=== PATIENT | male | born 1950 | race Caucasian/White ===

== ENCOUNTER 2017-01-17 12:43 | Inpatient (IN) | payer OTHER ==
[~2017-01-17] VITALS: Ht 177.8 cm; Wt 136.6 kg
--- NOTE | ~2017-01-17 | CON ---
PATIENT'S NAME: YAMILETH WILLIS [facility] AGE: 66 Y [address] ROOM: [id number] [place], [place] [address] LOCATION: [facility] ADMIT DATE: 01/17/2017 Consultation DISCHARGE DATE: FAMILY PHYSICIAN: PHYSICIAN, UNKNOWN ATTENDING PHYSICIAN: Cas Joseph DATE OF CONSULTATION: 01/17/2017 Consultation was requested by Dr. Joseph on inpatient rehab for medical management. HISTORY OF PRESENT ILLNESS: Mr. Willis is a morbidly obese, male, who is a [place] in [place], who had been relatively well and never hospitalized prior to about September of this year. He had been diagnosed with a skin lesion, found to be melanoma in 2015, it was not known to be metastatic at that time. 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 They were unable to do a lumbar puncture there and sent him to the [facility] in [place]. While in [place], they confirmed the diagnosis of Guillain-Hornsby, thought it was due to the underlying cause of he was found to have metastatic melanoma stage IV, confirmed in November of this year. He was treated with Nivolumab 240 mg IV x2. He had also been being treated with IVIG for his neuropathic symptoms, which was helpful; and when he went off it, became weaker. Eventually, he was sent to [facility] for rehab and was there for quite a while. He reports he was not improving and in fact had recrudescence of some respiratory failure symptoms, seemed to have had an acute pneumonia, for which he was transferred to another acute facility at [facility] in [place] on January 12. He was treated with nasal cannula oxygen, steroids, nebulizers, prednisone, and Levaquin for this. In addition, while there, the IVIG treatments were resumed and he is to be getting weekly doses, the next one being due on 01/23/2017. His last dose of Levaquin will be an oral tablet today. He is going to continue on 30 mg of prednisone for a few days and then resume 20 mg maintenance dose. While the patient states he was healthy and did not really have any medical issues prior to these hospitalizations in [place], he has been being treated with anxioloytics, CPAP because of hypoxia, will be put on auto-adjusting CPAP nocturnally because of nocturnal hypoxia. He is also now diagnosed with hypertension. He was found on imaging to have an old thalamic stroke as well. PATIENT'S NAME: YAMILETH WILLIS [facility] AGE: 66 Y [address] ROOM: [place] [address] LOCATION: [facility] ADMIT DATE: 01/17/2017 Consultation DISCHARGE DATE: FAMILY PHYSICIAN: PHYSICIAN, UNKNOWN ATTENDING PHYSICIAN: Cas Joseph Today, the patient reports he is feeling better. His oxygen requirement had been only at around 2 L, but apparently he was put on 4 during transport. I turned him down to 3 and his oxygen saturation stayed at 94%. So, we will wean his oxygen to keep his saturations greater than or equal to 93%. PAST MEDICAL HISTORY: 1. Hypertension. 2. Obstructive sleep apnea. 3. Morbid obesity. 4. Thalamic stroke by imaging. 5. Malignant melanoma. 6. Guillain-Hornsby. 7. Acute on chronic hypoxic respiratory failure. 8. Anxiety. 9. Pneumonia PAST SURGICAL HISTORY: Excisional biopsy of melanoma in left shoulder in December 2015. FAMILY HISTORY: Both parents from acute coronary syndrome. SOCIAL HISTORY: The patient is a magdaleno in [place], [place]. He was self-employed prior to his acute illness beginning a few months ago. He has never smoked, does not have any significant alcohol use, and was very active. ALLERGIES: NO KNOWN DRUG ALLERGIES. MEDICATIONS: 1. IVIG 55 grams weekly. 2. Prednisone, continue a taper of 30 mg for 3 days, then 20 mg. 3. Sodium chloride nasal spray p.r.n. 4. Amlodipine 5 mg p.o. daily. 5. Lisinopril 10 mg p.o. daily. 6. Labetalol 200 mg 1 every 8 hours. 7. Milk of Mag 30 mL daily p.r.n. for constipation. 8. Ranitidine 150 mg 1 at h.s. for GERD. 9. Alprazolam 0.5 mg 1 t.i.d. p.r.n. for anxiety. 10. Diclofenac patch transdermally twice day p.r.n. for pain. 11. Mucinex 1 daily. 12. Ipratropium nebs q.i.d. and every 2 hours p.r.n. for dyspnea. 13. Brovana 2 mL neb b.i.d. 14. Polyethylene glycol daily. 15. Cyclobenzaprine 5 mg 1 p.o. b.i.d. PATIENT'S NAME: YAMILETH WILLIS [facility] AGE: 66 Y [address] ROOM: [address] [address] LOCATION: [facility] ADMIT DATE: 01/17/2017 Consultation DISCHARGE DATE: FAMILY PHYSICIAN: PHYSICIAN, UNKNOWN ATTENDING PHYSICIAN: Cas Joseph 16. Enoxaparin 40 mg twice daily. REVIEW OF SYSTEMS: He denies headaches. He denies visual changes, hearing loss, pharyngitis, odynophagia, dysphagia, or GERD. He has had no nausea, vomiting, diarrhea, constipation, or melena. He denies urinary symptoms of hesitancy, urinary tract infection, frequency, or incontinence. He denies arthritis, arthritic syndromes, or joint problems. He denies psychiatric problems. The major positives on the review of systems include his new oxygen requirement with some cough and wheezing, for which he has been treated. Remainder of a 12- point review of systems is negative. PHYSICAL EXAMINATION: VITAL SIGNS: Blood pressure 146/66, pulse 74, respirations 18, temperature 97.6, and oxygen saturation is 94% on 3 L nasal cannula O2. GENERAL: The patient is semi-balding, who has multiple skin lesions around his face and neck. HEENT: Pupils are equal and round. Sclerae anicteric. Palpebral conjunctivae are pink without exudate. Oropharynx is clear. Dentition is in fair repair. NECK: Supple without lymphadenopathy. There is redundant adipose. LUNGS: Clear to auscultation bilaterally. CARDIOVASCULAR: Regular rate and rhythm without murmur, rub, or gallop. ABDOMEN: Obese, soft, nontender, and nondistended with normoactive bowel sounds. EXTREMITIES: There is 1 to 2+ pretibial edema and the dorsalis pedis pulses are 2+ and equal bilaterally. He is moving all extremities equally. LABORATORY DATA: Laboratory data is obtained from the [facility] records. His CBC from today shows white blood cell count of 9.4, hemoglobin of 13.1, hematocrit of 39, MCV of 92, and platelets of 217. Differential shows neutrophils 82%, lymphs 10%, and monos 7%. Chemistry from 01/15/2017, showed sodium 136, potassium 4.1, chloride 102, bicarb 32, glucose 102, BUN 21, creatinine 0.6, calcium 8.5, and EGFR is greater than 59. IMAGING STUDIES: Chest x-ray on 01/12/2017, showed left basilar atelectasis without acute infiltrate. There is a CT scan on 01/12/2017. CT of the head is unremarkable, unenhanced CT of the brain, this was mainly done to look for mets as far as I am aware and there was no hemorrhage or mass effect. CT of the chest with and without contrast on 01/12/2017, and you can preface PATIENT'S NAME: YAMILETH WILLIS [facility] AGE: 66 Y [address] ROOM: [place] [address] LOCATION: [facility] ADMIT DATE: 01/17/2017 Consultation DISCHARGE DATE: FAMILY PHYSICIAN: PHYSICIAN, UNKNOWN ATTENDING PHYSICIAN: Cas Joseph these imaging studies also from the [facility]. 1. No CT evidence of pulmonary embolism. 2. Extensive mediastinal and right hilar adenopathy, bilateral pulmonary nodules, partial collapse of the medial aspect of the left lower lobe. ASSESSMENT AND PLAN: 1. Acute on chronic respiratory failure with the acute aspect having been resolved during his hospitalization at [facility]. He is still requiring oxygen at about 3 L and we will attempt to wean as above. This is likely related to his melanoma and he may need Pulmonary consultation here, at least outpatient followup given the nodules and his O2 requirement. 2. Nocturnal hypoxia with presumed obstructive sleep apnea. We will continue CPAP with auto-correct empiric therapy as he has been on since his hospitalizations. Again, he will need outpatient polysomnography and Pulmonology followup. 3. Hypertension. Continue the medical management that has been started at [facility]. 4. Obesity. Should be on the low carb cardiac diet. 5. Anxiety. Continue benzos p.r.n. I would try to wean those and may need to use BuSpar, something not addictive. 6. Malignant melanoma. Consult Oncology. I will leave that to Dr. Joseph. He may just want to wait and see them as an outpatient. 7. History of Guillain-Hornsby with a polyneuropathy. Continue his IVIG treatments. Thank you very much for your assistance. SURY SHEFFIELD MD LM/meena /[id number] d: 01/18/17 0000 t: 01/18/17 1731, CONSULTATION REPORT
--- NOTE | ~2017-01-17 | CON ---
PATIENT'S NAME: YAMILETH SLATER [facility] AGE: 66 Y [address] ROOM: [id number] [place], [place] [address] LOCATION: [facility] ADMIT DATE: 01/17/2017 Consultation DISCHARGE DATE: 02/10/2017 FAMILY PHYSICIAN: Noe Dickson MD ATTENDING PHYSICIAN: Cas Parham DATE OF CONSULTATION: 02/04/2017 REFERRING PHYSICIAN: Hugh Salmeron MD TEAM MEMBERS REPORTING: Include Dr. Parham; Crista Carrion, social security specialist; Debbi Barreto, RN; Sonya Campuzano, PT; Julia Stapleton, PT; Arminda Rivas, OT; Honey Bartholomew, therapeutic recreation; Sister Graciela Auguste, Pastoral Care; and Maryjane from Pharmacy. CURRENT STATUS: Alma Staples is a 66-year-old man, admitted to our inpatient rehabilitation unit with Guillain-[place]. The patient also has a history of stage IV melanoma. The patient is continent of bowel and bladder. He does have some swollen skin. No pain issues. The patient is on a regular diet. Prealbumin is 16, currently at low nutritional risk. He can transfer bsj-ss-cmkfjs and tgtnko-fh-dmq at standby to mod I; xvd-vx-zgusk and wrjtj-gp-daw, mod I; and uks-vb-vzlyc and nhgyd-jk-tdq, standby. He can walk 150 feet with a front- wheeled walker at standby and he can climb 4 stairs with 2 railings at contact guard assistance. He has met 2/9 long-term PT goals and 5/5 short-term PT goals. The patient can dress his upper and lower body at standby; bathing, standby; toilet and shower transfers, standby; and home management tasks, standby. He has met 5/12 long-term OT goals. The patient can complete car transfers at standby. His roll cleaner is improving. The patient has been very upbeat and enjoys pastoral care visits. No pharmacy concerns. DISCHARGE PLAN: The patient is receiving 3 hours of PT and OT Thursday through Thursday. The patient has daily rehabilitation, nursing, and physiatry involvement as well as therapeutic recreational services. The patient has shown functional improvement and is progressing. Please see his plan of care for specific goals. Plan is for patient to discharge on February 10, 2017. The patient plans to go home with outpatient therapy services. CRISTA CARRION FOR CAS PARHAM MD TD/meena PATIENT'S NAME: YAMILETH SLATER [facility] AGE: 66 Y [address] ROOM: [place] [address] LOCATION: [facility] ADMIT DATE: 01/17/2017 Consultation DISCHARGE DATE: 02/10/2017 FAMILY PHYSICIAN: Noe Dickson MD ATTENDING PHYSICIAN: Cas Parham /[id number] d: 02/22/17 1705 t: 03/06/17 1137, CONSULTATION REPORT
--- NOTE | ~2017-01-17 | PUL ---
PATIENT'S NAME: YAMILETH SLATER [facility] AGE: 66 Y [address] ROOM: [place] [address] [facility] AD[facility] DATE: 01/17/2017 Pulmonary DISCHARGE DATE: 02/10/2017 FAMILY PHYSICIAN: Noe Dickson MD ATTENDING PHYSICIAN: Cas Joseph NAME OF PROCEDURE: Overnight Pulse Oximetry DATE OF PROCEDURE: February 09 to February 10, 2017 REASON FOR PROCEDURE: Nocturnal hypoxemia RESULTS: The test was performed on room air. The recording time and total recording time were 7 hours, 10 minutes, and 32 seconds. The highest pulse 88, lowest pulse was 47, with mean pulse of 60. The highest SpO2 was 95%, lowest SpO2 was 72%, with mean SpO2 88.2%. The patient spent 2 hours, 57 minutes, and 40 seconds with SpO2 less than 89%, representing 41.3% of the total sleep time. The desaturation event index was elevated at 39.7. PHYSICIAN INTERPRETATION: The patient has evidence of significant nocturnal hypoxia and would qualify for supplemental oxygen as per Medicare criteria. However because of the severity of his nocturnal hypoxia with an elevated desaturation event index a sleep study is suggested at this time. ALLEGRA STEWART MD RFKenneth/ks /[id number] dtt: 02/12/17 0854 , ALLEGRA STEWART dtd: 02/11/17 1342
--- NOTE | ~2017-01-17 | DS ---
PATIENT'S NAME: YAMILETH SLATER [facility] AGE: 66 Y [address] ROOM: [place] [address] LOCATION: [facility] ADMIT DATE: 01/17/2017 Discharge Summary DISCHARGE DATE: FAMILY PHYSICIAN: Noe Dickson MD ATTENDING PHYSICIAN: Cas Parham [facility] COURSE: This 66 years old gentleman was admitted to rehab unit at [facility], [place], [place], on 01/17/2017 for continuous medical treatment and intensive rehabilitation with marked generalized weakness secondary to Guillain-[place] syndrome. He also had COPD, also had multiple myeloma with metastasis diagnosed in November 2016, and was put on intensive therapy. At the present time, he is doing well, alert, oriented, feels well and comfortable. Vitals are blood pressure 141/84, temperature 97.7, pulse 67, and respiration rate 20. His CBC today on 02/09 was as follows: White BC 9.0, RBC 4.56, hemoglobin 13.6, and platelets 2.9. His CMS: Sodium 141, potassium 3.6, chloride 107, CO2 of 26, BUN 11, creatinine 0.7, and glucose 86. Prealbumin 18.0. Able to ambulate with gait training and up to 120 feet x2 with single-point cane and sometimes close by. To start with, he will go to outpatient PT and OT 3 times per week for the coming 4 weeks. He should not drive and/or operate any mechanical device until he is re- evaluated. He will follow with his family physician as soon as possible, and all his medications of discharge will be given for 30 days, and any change and/or addition or deletion of any medication is as per his family physician. He will follow with Dr. Fernandez on 02/19/2017. Follow up with Dr. Noe Dickson in 6 weeks. PATIENT'S NAME: YAMILETH SLATER [facility] AGE: 66 Y [address] ROOM: [place] [address] LOCATION: [facility] ADMIT DATE: 01/17/2017 Discharge Summary DISCHARGE DATE: FAMILY PHYSICIAN: Noe Dickson MD ATTENDING PHYSICIAN: Cas Parham Follow with Dr. Bhandari, please call [phone]. Again, no driving or operating any mechanical device until he is re-evaluated. He will have a central line for his treatment. He is on the following medications: 1. Immunoglobulin IgG 10% octagram, 10%, 10 g per 100 mL vial until 04/17. 2. Tylenol 650 Thursday 30 minutes before IVIG. 3. Tylenol 650 Thursday if IGIV infusion not complete, repeat dose if IVIG not complete. These are both for 30 days. 4. Norvasc 5 mg p.o. daily. 5. Flexeril 5 mg twice daily. 6. Pepcid 20 mg p.o. at bedtime. 7. Humibid LA 650 daily. 8. Trandate 200 mg p.o. q.8 hours. 9. Lisinopril 10 mg p.o. daily. 10. Deltasone 20 mg p.o. daily with food. 11. Pulmicort 0.5 mg inhalation twice daily. 12. Albuterol one each inhalation twice daily. 13. MiraLAX 17 g p.o. as needed p.r.n. FINAL DIAGNOSES: 1. Unstable gait. 2. Dependent in activities of daily self-care. 3. Marked generalized weakness secondary to Guillain-[place] syndrome diagnosed recently. 4. History of multiple myeloma, stage IV, followed by Dr. Fernandez, oncologist. 5. Chronic obstructive pulmonary disease per history. 6. Hypertension. 7. Anxiety, now stable. 8. Dyslipidemia. 9. Reflux gastric disease. We will do overnight sleep study for CPAP possibility. All the above was explained to him in detail. He verbalized understanding and agreement with plan of care. CAS PARHAM MD WMS/airaml PATIENT'S NAME: YAMILETH SLATER [facility] AGE: 66 Y [address] ROOM: [address] [address] LOCATION: [facility] ADMIT DATE: 01/17/2017 Discharge Summary DISCHARGE DATE: FAMILY PHYSICIAN: Noe Dickson MD ATTENDING PHYSICIAN: Cas Parham /[id number] d: 02/09/17 1153 t: 02/10/17 0723, DISCHARGE SUMMARY
--- NOTE | ~2017-01-17 | CON ---
PATIENT'S NAME: JHOAN SALTER [facility] AGE: 66 Y [address] ROOM: G34[address] [place], [place] [address] LOCATION: [facility] ADMIT DATE: 01/17/2017 Consultation DISCHARGE DATE: FAMILY PHYSICIAN: Noe Dickson MD ATTENDING PHYSICIAN: Cas Parham DATE OF CONSULTATION: 01/21/2017 REFERRING PHYSICIAN: Hugh Salmeron MD TEAM MEMBERS REPORTING: Include Dr. Parham; Crista Carrion, social and political studies professor; Debbi Barreto, RN; Julia Stapleton, PT; Sonya Campuzano, PT; Arminda Rivas, OT; Cielo Segovia, Speech Therapy; Honey Bartholomew, therapeutic rec; and Sister Gracieal Auguste, pastoral care. CURRENT STATUS: Jhoan is a 66-year-old man, admitted to our inpatient rehab unit on January 17, 2017, from [facility] in [place]. The patient has a diagnosis of Guillain- [place] syndrome. He also has a history of multiple myeloma stage IV. The patient is on a rehab unit following the Guillain-[place]. He is getting IVIG 1 time a week for maintenance dose. He has a history of hypertension, obstructive sleep apnea, morbid obesity, thalamic stroke by imaging, malignant melanoma, Guillain-[place] syndrome, acute on chronic hypoxic respiratory failure, anxiety, and pneumonia. The patient is continent of bowel and bladder. No pain issues. He is on a regular diet. He can transfer sit-to- supine and hpojhn-vj-rfh at minimal assistance; nlr-ze-xozgn and zdlas-uq-rsp at minimal assistance. He can do scoot transfer at contact guard assistance to minimal assistance. The patient can ambulate 30 feet with minimal assistance with job sheet at the pelvis using a front-wheeled walker. He can propel his wheelchair 150 feet at contact guard assistance. He did fatigue rapidly. His goals will be set at standby assistance to modified independence for PT. The patient can dress his upper body at standby; lower body minimal assistance; grooming standby; bathing minimal assistance; toilet transfers, contact guard assistance using a scoot technique. He is dependent for toileting, and contact guard assistance for shower transfers. The patient does live alone. His goals for OT have been set for standby. The patient has been very open to pastoral care. DISCHARGE PLAN: The patient is receiving 3 hours of PT and OT Thursday through Thursday. The patient has daily rehab, nursing, and physiatry involvement as well as therapeutic recreational services 4 days per week. The patient has shown functional improvement and is progressing. Please see his plan of care for specific goals. Plan is for the patient to discharge in approximately 3 to 4 weeks. The patient's goal is to be able to return to home in [place]. PATIENT'S NAME: JHOAN SLATER [facility] AGE: 66 Y [address] ROOM: [place] [address] LOCATION: [facility] ADMIT DATE: 01/17/2017 Consultation DISCHARGE DATE: FAMILY PHYSICIAN: Noe Dickson MD ATTENDING PHYSICIAN: Cas Parham CRISTAMARY CARRION FOR CAS PARHAM MD TD/modl /[id number] d: 02/02/17 1225 t: 02/16/17 1415, CONSULTATION REPORT
--- NOTE | ~2017-01-17 | CON ---
PATIENT'S NAME: JHOAN WILLIS [facility] AGE: 66 Y [address] ROOM: [address] [address] LOCATION: [facility] ADMIT DATE: 01/17/2017 Consultation DISCHARGE DATE: FAMILY PHYSICIAN: Noe Dickson MD ATTENDING PHYSICIAN: Cas Joseph DATE OF CONSULTATION: 01/19/2017 REFERRING PHYSICIAN: Hugh Salmeron MD REQUESTING PHYSICIAN: Jessica Mcdonald MD. HISTORY OF PRESENT ILLNESS: Jhoan Willis is a 66-year-old man seen for assistance in the continued management of widely disseminated nodular malignant melanoma. The history of the present illness is obtained from Mr. Willis, whose history is not entirely informative due to frequent lapses of memory; Dr. Mcdonald; and review of the extensive, well organized, helpful records from the [facility]. Mr. Willis is currently on day 22 of his second cycle of nivolumab. He is currently wheelchair-bound. Today, he walked up to 22 feet with a walker and one person assisting. The patient has paresthesias in the soles of his feet and to the metacarpal joints, which he describes as pins and needles. He is not sure if the paresthesias have led to any change in function, but they are not particularly painful. His appetite is currently good, although he acknowledges he lost 58 pounds over one 4-5-month period during his illness. He produces clear sputum twice a day when he coughs, and has developed some pedal edema while he has been wheelchair-bound, which has been reasonably well controlled with furosemide. The patient is currently on the Inpatient Rehabilitation floor. Mr. Willis has a history of cutaneous melanoma. This was first symptomatic in September 2015 when he noticed a red nodule on his left shoulder, which grew over the next two months. On 12/14/2015, the patient saw his physician, Dr. Arjun Asher, who referred the patient to Dr. Dora Munoz. On 12/25/2015, Dr. Munoz performed an excisional skin biopsy. The biopsy revealed a nodular malignant melanoma. The melanoma was invasive to a depth of 12 mm and to Kwan's level IV. Ulceration was present. The dermal mitotic index was 17/mm2. There was no lymphovascular or perineural invasion identified. The pathologist made the point the specimen had irregular architecture, which made it difficult to quantify a precise Breslow's depth measurement. The Breslow's depth level was no less than 12 mm, but might have been greater. The lateral and deep margins were involved on the initial specimen. PATIENT'S NAME: JHOAN WILLIS [facility] AGE: 66 Y [address] ROOM: [address] [address] LOCATION: [facility] ADMIT DATE: 01/17/2017 Consultation DISCHARGE DATE: FAMILY PHYSICIAN: Noe Dickson MD ATTENDING PHYSICIAN: Cas Joseph On 01/15/2016, Dr. Munoz performed a wide re-excision of the area over the left shoulder (4 x 8.5 x 3 cm), and performed a left sentinel lymph node study. There was no residual melanoma in the shoulder specimen, and the sentinel node examined revealed reactive sinus histiocytosis. No local or systemic adjuvant therapy was administered or apparently contemplated. On 09/29/2016, the patient saw Sarika Walker APRN, at the [facility] for evaluation of longstanding right hip pain. Plain films of the right hip were unremarkable. A methylprednisolone dose pack was initiated. An MRI scan of the lumbar spine and x-ray of the lower spine were recommended. Nurse Walker detected a nodule on the skull compatible with a "cyst." Because of his history of cutaneous melanoma, Nurse Walker referred the patient to Dr. Munoz. Before the outpatient consultation could occur, the patient developed a hypertensive crisis on 10/13/2016, and reported to the [facility] for evaluation of diplopia, left arm numbness, and left upper and lower extremity weakness, which the patient acknowledged may have been gradually progressive as well as severe back pain, which had become gradually progressive and associated with ataxia. In the Emergency Room, his blood pressure was 240/125. Labetalol was administered with improvement in the blood pressure. Imaging studies were obtained. The CAT scan of the brain revealed a lacunar infarct in the left thalamus, which appeared old. There were nodules involving the right parotid gland as well as the subcutaneous tissue at the vertex. A CAT scan of the neck revealed a large mediastinal mass just to the right of the trachea. There was a 2-cm mass in the right parotid gland. There was a 1.8 subcutaneous nodule on the right posterior neck and [id number] osteoarthritis throughout the cervical spine. The CAT scan of the chest, abdomen, and pelvis revealed mild cardiac enlargement and mild pulmonary vascular engorgement with large mediastinal lymph nodes and bilateral axillary nodes, small peripelvic cysts in the right kidney, diffuse fatty infiltration of the liver with a small amount of gallbladder sludge, and a 3-cm lesion within the spleen; a left inguinal mass and a subcutaneous nodule posterior to the left thoracic spine, with moderate osteoarthritis in the thoracic and lumbar spine. MRI of the lumbar spine revealed small parapelvic cysts in the left kidney, and congenital spinal and neural foraminal stenosis. Dr. Munoz scheduled a lymph node biopsy as an outpatient to be performed after the patient stabilized. The patient was discharged on 10/15/2016 with his blood pressure under better control. The patient shortly returned to [facility] for evaluation of persistent back pain, progressive paraparesis and paresthesias in all four extremities, and was swiftly transferred to the [facility] on 10/21/2016. At the [facility], he underwent EMGs on 10/22/2016, which revealed electrophysiologic evidence of a subacute, PATIENT'S NAME: JHOAN WILLIS [facility] AGE: 66 Y [address] 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 Nocturnal trend oximetry was compatible with cyclical desaturation, compatible with sleep apnea. On 10/22/2016, a lumbar puncture revealed the protein was 181 mg/dL with 1 WBC. On 10/28/2016, a right axillary node biopsy was performed, and revealed metastatic melanoma with the BRAF K601E mutation. On 11/13/2016, a PET/CT scan was performed, which revealed a 1.7-cm scalp lesion in the midline frontal area and a right parietal scalp lesion. There was a right shoulder extensor muscle lesion and bilateral axillary node masses. There was a large mediastinal right peritracheal hypermetabolic ale mass, as well as subcarinal, mediastinal, and right hilar lymph nodes with the right paratracheal node measuring 4.6 cm. There was a markedly hypermetabolic lesion in the middle of the spleen, as well as a single hepatic hypermetabolic lesion in the liver adjacent to the gallbladder. Anterior mesenteric ale masses, right paracaval ale masses, and left inguinal masses were noted as well. The splenic mass was 3.4 cm. There were hypermetabolic lesions in the left mid lumbar level, posterior paraspinous muscle, the right greater trochanteric bone, and a right calcaneal lesion, which appeared to have an associated pathologic fracture. There was a hypermetabolic medial condyle left distal femur lesion noted as well. The patient was seen in Medical Oncology consultation by Dr. Wesley Harding. Dr. Harding recommended concurrent dabrafenib and trametinib, but the Insurance Company would not reimburse the patient for this combination because it was not FDA approved for the particular unusual BRAF mutation that he had. Dr. 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 However, it was clear the patient needed systemic therapy, and nivolumab was recommended. On 12/08/2016, the first cycle was administered, and on 12/25/2016. The third cycle was not administered as far as he knows. We have no information available on the medical record that he has received nivolumab since 12/25/2016. The patient has been improving. His appetite has improved and his strength has improved. The patient acknowledges he was sunburned a lot as a child. He has [place] ancestors. He has been a magdaleno and has not been careful about sunscreen. He had no prior history of skin cancer. He has no family history of melanoma. ACTIVE MEDICAL PROBLEMS, CHRONIC AND DIAGNOSED: 1. Class III obesity. The BMI is 42 kg/m2 upon admission. 2. Essential arterial hypertension noted in 2012, which can be labile. It PATIENT'S NAME: JHOAN WILLIS [facility] AGE: 66 Y [address] ROOM: [place] [address] LOCATION: [facility] ADMIT DATE: 01/17/2017 Consultation DISCHARGE DATE: FAMILY PHYSICIAN: Noe Dickson MD ATTENDING PHYSICIAN: Cas Joseph has been associated with lacunar infarcts and diastolic dysfunction. 3. Obstructive sleep apnea, treated effectively with CPAP. 4. Parapelvic left kidney cyst noted on CAT scan. 5. Atherosclerotic cerebrovascular disease. There was small vessel ischemic disease as well as right and left proximal internal carotid artery stenosis (less than 50%) noted on the imaging studies. Furthermore, the patient has had bilateral basal ganglia and left thalamic lacunar infarcts. 6. 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 7. Right adrenal myelolipoma noted on CAT scan. 8. Non-alcoholic fatty liver disease noted on CAT scan. 9. Multiple thyroid nodules. 10. Grade 1 diastolic dysfunction. ACUTE MEDICAL ILLNESSES (RESOLVED), PAST SURGERIES, AND INJURIES: Other than the surgical procedures and hospitalizations related to his melanoma, the patient has no past hospital admissions or outpatient surgical procedures. MEDICATIONS UPON ADMISSION: Lisinopril 10 mg p.o. q.24 h. ADVERSE REACTIONS TO MEDICATIONS, TRANSFUSIONS, AND ALLERGIES: 1. No known allergies. 2. No history of transfusions. HABITS: Tobacco, none. Alcohol, none. Caffeine 1. 1-2 cups of coffee per day. 2. Two iced tea daily. IMMUNIZATIONS: Negative flu, negative Pneumovax, negative tetanus, and negative varicella zoster virus. FAMILY HISTORY: A sister developed colon cancer at age 40. A brother developed prostate cancer at age 60 and was cured. The patient's brother is now 70. SOCIAL HISTORY: The patient was born and raised a [facility]. Following graduation, he attended [employer]. The patient is a lifelong bachelor who attends the [employer]. He has a brother in [place] and a sister in PATIENT'S NAME: JHAON WILLIS [facility] AGE: 66 Y [address] ROOM: [address] [address] LOCATION: [facility] ADMIT DATE: 01/17/2017 Consultation DISCHARGE DATE: FAMILY PHYSICIAN: Noe Dickson MD ATTENDING PHYSICIAN: Cas Joseph [place], [place]. REVIEW OF SYSTEMS: Negative other than those noted in the history of the present illness. PHYSICAL EXAMINATION: VITAL SIGNS: Pulse was 80 and regular, blood pressure was 145/70, respiratory rate was 20, temperature was 98 degrees, and SpO2 was 93% on 2 L. Height is 70 inches. Weight is 133 kg (293 pounds). BMI is 42 kg/m2. GENERAL: Well developed, obese, 66-year-old man, wheelchair bound. HEENT: Mild rosacea. There is a 3-cm diameter cavity on the skull, where the patient reports a melanoma has regressed. LYMPHATICS SYSTEM: Lymph nodes were nonpalpable. NECK: Without JVD or carotid bruits. SKIN: Multiple seborrheic keratoses and warts. CHEST: Clear. CARDIOVASCULAR: Decreased S1 and S2. No murmurs, bruits, or adventitious sounds. BREASTS: Bilateral lipomastia. ABDOMEN: No masses, tenderness, or organomegaly. GENITALIA AND RECTAL: Not examined. EXTREMITIES: Well-healed scar over the left shoulder. Pulses are 2+ throughout. Trace lower extremity peripheral edema. NEUROLOGIC: Strength is 5/5 in the upper extremities and 4/5 in the lower extremities. Deep tendon reflexes and Babinski are not tested. IMPRESSION: 1. 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, cutaneous nodular melanoma arising from a stage IIC (tT4b,N0,M0) nodular melanoma of the left shoulder (Breslow depth at least 12 mm, Kwan's level IV) with a dermal mitotic index of 17/mm2 with ulceration, now metastatic to the bone (right calcaneus with a pathologic fracture, medial condyle of the left femur, and right greater trochanter); liver (solitary mass adjacent to the gallbladder); lymph nodes (bilateral axillary, right hilar nodes, left inguinal, anterior mesenteric, right paracaval, right paratracheal, and subcarinal); spleen; subcutaneous areas of the posterior iliac spine, right neck, scalp, and the right parotid gland responding to nivolumab. 2. 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 3. There is no reason to change the current approach as the patient is tolerating nivolumab well and deriving excellent benefit from it. We need to proceed. PLAN: DIAGNOSTIC PATIENT'S NAME: JHOAN WILLIS [facility] AGE: 66 Y [address] ROOM: [place] [address] LOCATION: [facility] ADMIT DATE: 01/17/2017 Consultation DISCHARGE DATE: FAMILY PHYSICIAN: Noe Dickson MD ATTENDING PHYSICIAN: Cas Joseph 1. LDH. 2. TSH. TREATMENT 1. Nivolumab 240 mg IV every two weeks. We will initiate this as soon as possible. 2. Continue the immune globulin managed by the hospitalist. PATIENT EDUCATION Recommended we continue his current approach. MD HUE GEORGEB/modl /[id number] CC: MD Noe Evans MD Melissa R Stade, MD William M Suleiman, MD Lucinda Mundorf, MD [address] [place] [id number] Purvi Edmond MD [address] [address] d: 01/23/17 0026 t: 01/23/17 1401, CONSULTATION REPORT
--- NOTE | ~2017-01-17 | CON ---
PATIENT'S NAME: JHOAN SLATER [facility] AGE: 66 Y [address] ROOM: [id number] [place], [place] [address] LOCATION: [facility] ADMIT DATE: 01/17/2017 Consultation DISCHARGE DATE: FAMILY PHYSICIAN: Noe Dickson MD ATTENDING PHYSICIAN: Cas Parham DATE OF CONSULTATION: 01/28/2017 REFERRING PHYSICIAN: Hugh Salmeron MD TEAM MEMBERS REPORTING: Include Dr. Parham; Crista Carrion, social worker health services; Jamee Murdock, RN; Julia Stapleton, PT; Sonya Campuzano, PT; Arminda Rivas, OT; Cielo Segovia, Speech Therapy; Honey Bartholomew, therapeutic rec; and Sister Graciela Auguste, pastoral Care. CURRENT STATUS: Jhoan is a 66-year-old man, admitted to our inpatient rehab unit on January 17, 2017, with Guillain-[place] syndrome. He also has a history of melanoma, stage IV. He is continent of bowel and bladder. No skin or pain issues. The patient is on a regular diet. He is at low nutritional risk. He can transfer sit to supine and supine to sit at standby; sit to stand, contact guard assistance with cues, and bed to chair, contact guard assistance. He can ambulate 150 feet with a front-wheeled walker at contact guard assistance and he can climb 4 stairs at contact guard assistance. These are 6 inch steps. The patient is not using his AFO anymore. He has met 3/7 short-term PT goals. The patient can dress his upper body at standby; lower body minimal assistance; grooming, standby; bathing, moderate assistance; toilet and shower transfers, contact guard assistance; and feeding, independent. Home management tasks are currently at contact guard assistance. We plan to do a home safety evaluation next week for patient. He has met 2/12 long-term OT goals and 2/3 short-term OT goals. The patient has been very open to pastoral care. DISCHARGE PLAN: The patient is receiving 3 hours of PT, OT, Thursday through Thursday. The patient has daily rehab, nursing, and physiatry involvement as well as therapeutic recreational services 4 days per week. The patient has shown functional improvement and is progressing. Please see his plan of care for specific goals. Plan is for patient to discharge in approximately 10-14 days. The patient plans to return to home in [place], [place]. CRISTA CARRION FOR CAS PARHAM MD PATIENT'S NAME: JHOAN SLATER [facility] AGE: 66 Y [address] ROOM: [address] [address] LOCATION: [facility] ADMIT DATE: 01/17/2017 Consultation DISCHARGE DATE: FAMILY PHYSICIAN: Noe Dickson MD ATTENDING PHYSICIAN: Cas Parham TD/airaml /[id number] d: 02/02/17 1158 t: 02/16/17 1412, CONSULTATION REPORT
--- NOTE | ~2017-01-17 | HP ---
PATIENT'S NAME: YAMILETH SLATER [facility] AGE: 66 Y [address] ROOM: [address] [address] LOCATION: [facility] ADMIT DATE: 01/17/2017 History & Physical DISCHARGE DATE: FAMILY PHYSICIAN: Noe Dickson MD ATTENDING PHYSICIAN: Gene Parham DATE OF SERVICE: HISTORY OF PRESENT ILLNESS: This gentleman who is 66-year-old is admitted for continuous medical treatment and intensive rehabilitation. Referred from [facility] and admitted to [facility] on 01/17/2017. 1. Unstable gait. 2. Dependent activities of daily and self-care with marked weakness, bilateral lower extremities especially. 3. He is diagnosed status post Guillain-[place] syndrome leading to unstable gait and dependent activities of daily and self-care with marked weakness, bilateral lower extremities especially, at high risk of falling. 4. He has past history significant of multiple myeloma, stage IV. 5. He was on admission alert and oriented x3. VITAL SIGNS: Blood pressure 142/70, 97.7, pulse 80, respiratory rate 22, and he is 5 feet 10 inches tall and weighs 133 kg. ALLERGIES: NO REPORTED DRUG ALLERGIES. HE CAN MOVE BILATERAL UPPER AND LOWER EXTREMITIES, MARKEDLY WEAK IN BILATERAL LOWER EXTREMITY. MEDICATIONS: Current medications are as follows: 1. Tylenol 650 q.6 hours, do not exceed acetaminophen 4 g q.24 hours. 2. Deltasone 20 mg p.o. in a.m. 3. Humibid LA 600 mg 1 sustained release tablet per dose daily. 4. Norvasc 5 mg p.o. daily, hold if systolic blood pressure is below 110. 5. MiraLAX 17 g p.o. as needed daily. 6. Lisinopril 10 mg p.o. daily. 7. Labetalol hydrochloride 200 mg 2 tablets p.o. q.8 hours. 8. Lovenox 40 mg subcutaneous daily. 9. Flexeril 10 mg, give 5 mg p.o. b.i.d. 10. Pepcid 20 mg p.o. at h.s. 11. Pulmicort 0.5 mg b.i.d. inhalation. 12. Albuterol sulfate 2.5 mg (3 mL per dose) inhalation q.6 hours. 13. Albuterol sulfate (iprat-albut 0.5-3 mg, 3 mL each dose) inhalation PATIENT'S NAME: YAMILETH SLATER [facility] AGE: 66 Y [address] ROOM: [address] [address] LOCATION: [facility] ADMIT DATE: 01/17/2017 History & Physical DISCHARGE DATE: FAMILY PHYSICIAN: Noe Dickson MD ATTENDING PHYSICIAN: Gene Parham q.i.d. as needed. 14. Sodium chloride. 15. Pine nasal spray in each nostril q.2 hours as needed. 16. Xanax 0.5 mg 1 p.o. t.i.d. 17. Dulcolax suppository 10 mg rectally p.r.n. 18. MOM 30 mL p.r.n. at h.s. 19. Immune globulin, Octagam 10% 5 gram vial as directed 50 mL Thursday IV on 01/23/2017, 12 bags. 20. Prednisone 30 mg p.o. daily 3 doses. ASSESSMENT AND PLAN: 1. At the present time, the patient can move bilateral upper extremities fairly well. He is able to communicate, able to understand, comprehend, and express without difficulty. 2. We will put on intensive PT, OT and we will ask hospitalist to follow and Dr. Salmeron to follow on his melanoma. 3. His urinalysis was basically, grossly negative. 4. His CBC was as follows; white BC 8.8, RBC 4.52, hemoglobin 13.1, hematocrit 41.5, and platelets 200,000. 5. CMS; sodium 140, potassium 3.9, chloride 106, CO2 30, BUN 16, creatinine 0.8, and glucose 107. 6. Prealbumin was 22.0. 7. He could stand on parallel bars x4 with support of moderate assistance, especially support to his knees. He could make at best 8 feet x1 on parallel bar with moderate assistance of one. We will put on intensive PT/OT 3 hours per day, 15 hours per week for about maybe 2 to 3 weeks, aiming to discharge on modified independence. All the above was explained to him in detail. He verbalized understanding and agreement with plan of care. GENE PARHAM MD WMS/modl /[id number] D: [id number] T: [id number] HISTORY & PHYSICAL
--- NOTE | ~2017-01-17 | CON ---
PATIENT'S NAME: JHOAN WILLIS [facility] AGE: 66 Y [address] ROOM: [place] [address] LOCATION: [facility] ADMIT DATE: 01/17/2017 Consultation DISCHARGE DATE: 02/10/2017 FAMILY PHYSICIAN: Noe Dickson MD ATTENDING PHYSICIAN: Cas Joseph DATE OF CONSULTATION: 01/19/2017 REFERRING PHYSICIAN: Hugh Salmeron MD REASON FOR CONSULTATION: Obstructive sleep apnea and mediastinal lymphadenopathy. HISTORY OF PRESENTING ILLNESS: Mr. Jhoan Willis is a 66-year-old gentleman with a history of widely disseminated nodular malignant melanoma. Mr. Willis is currently on day 22 of his second cycle of nivolumab. He is currently wheelchair bound. He walked up to 22 feet with a walker. He has a history of cutaneous melanoma that was first symptomatic in September of 2015 when he noticed a red nodule on his shoulder. The patient also has a history of obstructive sleep apnea, currently does not have his CPAP with him, he does complain of excessive daytime sleepiness, he complains of snoring, and non-refreshing sleep, the patient is currently wheelchair bound and also the patient has morbid obesity. Currently, the patient denied any shortness of breath, nausea, vomiting, abdominal pain. He currently denied any fever, as for the malignant melanoma, the patient has been on treatment, the patient does have mediastinal lymphadenopathy on the CT scan given the fact the patient has what melanoma and there is a set of CT scan of chest, abdomen, and pelvis that revealed mild cardiac enlargement and mild pulmonary vascular engorgement with large mediastinal lymph nodes and bilateral axillary nodes and small pelvic cyst in the right kidney, diffuse fatty infiltration of the liver with a small amount of gallbladder sludge. PAST MEDICAL HISTORY: Include: 1. Class 3 obesity. BMI is 42. 2. Essential hypertension. 3. Obstructive sleep apnea. 4. Pelvic left kidney cyst. 5. Atherosclerotic cerebrovascular disease. 6. Osteoarthritis arthritis. 7. Right adrenal myelolipoma. PATIENT'S NAME: JHOAN WILLIS [facility] AGE: 66 Y [address] ROOM: [place] [address] LOCATION: [facility] ADMIT DATE: 01/17/2017 Consultation DISCHARGE DATE: 02/10/2017 FAMILY PHYSICIAN: Noe Dickson MD ATTENDING PHYSICIAN: Cas Joseph 8. Nonalcoholic fatty liver disease. 9. Multiple thyroid nodules. 10. Grade 1 diastolic dysfunction. PAST SURGICAL HISTORY: Other than the surgical that has been done for melanoma, the patient denied any further surgeries. MEDICATIONS: Upon admission lisinopril 10 mg p.o. daily. ADVERSE REACTION TO MEDICATIONS/TRANSFUSIONS/ALLERGIES: 1. No known allergies. 2. No history of transfusions. HABITS: There is no history of alcohol, tobacco, or illicit drug abuse. FAMILY HISTORY: Sister developed colon cancer at the age of 40. A brother developed prostate cancer at the age of 60 and was cured. The patient's brother is now 70. SOCIAL HISTORY: The patient was born and raised in [place], [place]. Currently resides in [place], [place]. REVIEW OF SYSTEMS: A 10-point review of system was done and otherwise negative other than mentioned in the history of presenting illness. PHYSICAL EXAMINATION: VITAL SIGNS: Include a pulse was 80 and regular, blood pressure was 150/75, respiratory rate was 18, temperature was 98 degrees F, SpO2 was 93% on 2 L. His height was 70 inches and weight was 133 kg which is 293 pounds and BMI is 42. GENERAL: Well-developed, obese, wheelchair bound. HEENT: Mild rosacea. There is a 3 cm in diameter cavity on the skull where the patient reports a melanoma has progressed. LYMPHATIC: Lymph nodes are none palpable. NECK: No JVD. No lymphadenopathy noted. SKIN: Multiple seborrheic keratoses and warts. CHEST: Clear. CARDIOVASCULAR: Decreased S1 and S2. No murmurs or bruits noted. ABDOMEN: Soft, nontender. No palpable organs. Positive bowel sounds. EXTREMITIES: Well healed scar over the left shoulder. Pulses are +2. PATIENT'S NAME: JHOAN WILLIS [facility] AGE: 66 Y [address] ROOM: [id number] [place], [place] [address] LOCATION: [facility] ADMIT DATE: 01/17/2017 Consultation DISCHARGE DATE: 02/10/2017 FAMILY PHYSICIAN: Noe Dickson MD ATTENDING PHYSICIAN: Cas Joseph NEUROLOGIC: Strength is 5/5 in the upper extremities, 4/5 in the lower extremities. Deep tendon reflexes and Babinski are not tested. LABORATORY DATA: Reviewed from 01/17 which revealed white cell count of 8.8, hemoglobin is 13.1, and platelets of 200. Urinalysis was negative. His CMP was reviewed, which reveal a sodium was 140, potassium 3.9, CO2 of 30, anion gap 7.9, glucose of 107, calcium of 8.1, BUN of 16, creatinine 0.8, total protein of 8.3, albumin is 2.5, globulin 5.8, AST 15, ALT of 19, estimated GFR is more than 60. IMPRESSION: 1. Mediastinal lymphadenopathy. At the current point, in the setting of disseminated melanoma, this is most likely malignant. The patient is currently undergoing chemotherapy. I do not believe there is a need for further intervention. At this point, the patient has been stable on chemotherapy and has been responding. I would leave this issue to team Onc. At a certain point, Oncology will require more tissue. We will be happy to assist. 2. Obstructive sleep apnea. Currently, the patient has obstructive sleep apnea. He has all the symptoms for obstructive sleep apnea. Currently, is not treated. At the current point, we will put the patient on CPAP auto titrate 5 to 20. a. Until a formal sleep study is done and further evaluation of his disease is done. b. I have counseled the patient about the risk of sleep apnea unless he is using his CPAP. Thank you for allowing me to participate in the care of this patient. MD PETR WHITE/meena /[id number] d: 03/17/17 2354 t: 03/[id number], CONSULTATION REPORT
--- NOTE | 2017-01-17 19:34 | NUR ---
Significant Event:PATIENT ADMITTED TO ROOM 3292 FROM [facility] VIA AMBULANCE. ARRIVED AT 1705. SETTLED TO BED. REPORT GIVEN TO ONCOMING SHIFT AND ADMISSION PROCESS STARTED. O2 ON AT 4L/NC. DENIES PAIN. NO OTHER COMPLAINTS. Follow up:
[2017-01-17 19:43] LABS: BILIRUBIN URINE NEGATIVE (NEGATIVE); BLOOD URINE NEGATIVE /UL (NEGATIVE); COLOR URINE YELLOW (YELLOW); GLUCOSE URINE NEGATIVE (NEGATIVE); KETONE URINE NEGATIVE (NEGATIVE); LEUKOCYTES URINE NEGATIVE /UL (NEGATIVE); NITRITE URINE NEGATIVE (NEGATIVE); PH URINE 6.5 (4.0-8.0); PROTEIN URINE NEGATIVE (NEGATIVE); TURBIDITY URINE CLEAR (CLEAR); UROBILINOGEN URINE NORMAL (NORMAL)
--- NOTE | 2017-01-18 00:25 | NUR ---
D: Nursing Admission Note I: Nursing interventions provided to support the patient's individual plan of care R: MOBILITY-- Up 2 assist sit stand lift. Lower extremities very little movement, weakness. Tingling. NUTRITION--Regular, Regular consistancy diet SKIN/INCISIONS/WOUNDS-- Escoriated right groin. Rectal area red. bruising to bilateral AC SELF CARES-- Independent after set up. Needs assist with omero cares and dressing lower extremities. BOWEL/BLADDER-- Continent of B&B. Up with sit stand lift to the bathroom. Will use urinal. RESPIRATORY-- O2 at 3 liters. CPAP at HS. PAIN-- Denies pain. PSYCHOSOCIAL-- Normal COGNITION-- A&O SPECIAL NEEDS-- NA BLEEDING-- None SENSORY IMPAIRMENTS/DENTAL NEEDS: Glasses TEACHING NEEDS-- None INFECTION CONCERNS: None RISK FOR ELOPEMENT: None NEED FOR BED/MOVEMENT ALARM: yes DISMISSAL PLANS: HOME Other: P: Current plan of care reviewed and updated
[2017-01-18 04:58] LABS: BASOPHIL % 0.2 %; EOSINOPHIL # 0.1 K/uL (0.0-0.5); EOSINOPHIL % 1.4 %; HEMATOCRIT 41.5 % (37.0-53.0); HEMOGLOBIN 13.1 g/dL (11.0-16.0); IMMATURE GRANULOCYTE # 0.1 K/uL (0.0-0.3); IMMATURE GRANULOCYTE % 0.7 %; LYMPHOCYTE # 1.6 K/uL (0.8-4.0); LYMPHOCYTE % 18.3 %; MCHC 31.6 gm/dL (32.0-36.5); MCV 91.8 fl (83.0-98.0); MONOCYTE # 1.3 K/uL (0.0-1.0); MONOCYTE % 14.4 %; MPV 9.8 fl (9.4-12.4); NEUTROPHIL # (ANC) 5.7 K/uL (1.4-9.0); NRBC % 0 /100WBC (0-0.00); PLATELET COUNT 200 K/uL (150-450); RBC 4.52 M/uL (3.50-5.50); RDW-CV 14.6 % (11.9-14.6); WBC 8.8 K/uL (4.0-11.0)
--- NOTE | 2017-01-18 04:58 | NUR ---
Significant Event: Patient admitted last evening from [facility] with DX chemo induced peripheral Neuropathy. DX of Guillain-[place] was confirmed In [place]. In November of 2016 was DX with Metatastic Melenoma stage 4. Has started chemo tx. Patient is alert and oriented, VSS. Up with Sit to Stand Lift to the bathroom. Can use urinal when in bed. Lower extremities are weak and have tingling, movement is limited. Upper extremities are strong and normal. No IV access. O2 on at 3 liters per NC. CPAP at night. Patient has a frequent cough productive at times. Continent of bowel and bladder. Last BM last night. Excoriated area to his right groin, rectal area is red. Bruising to bilateral AC. Skin tags to his underarms and neck. Pleasant and coopertive. Follow up: Will be getting IVIG infusions weekly for 3 months starting 01/23/17.
[2017-01-18 05:13] LABS: ALBUMIN 2.5 gm/dL (3.5-5.0); ALK PHOS 48 IU/L (33-138); ALT 19 IU/L (12-78); ANION GAP 7.9 (10.0-19.0); AST 15 IU/L (10-40); BLOOD UREA NITROGEN 16 mg/dL (6-24); CALCIUM 8.1 mg/dL (8.5-10.5); CHLORIDE 106 mMol/L (96-110); CO2 30 mMol/L (22-32); CREATININE 0.8 mg/dL (0.6-1.3); ESTIMATED GFR (MDRD EQUATION) > 60; POTASSIUM 3.9 mMol/L (3.7-5.1); SODIUM 140 mMol/L (135-145); TOTAL BILIRUBIN 0.3 mg/dL (0.0-1.5); TOTAL PROTEIN 8.3 g/dL (6.0-8.4)
[2017-01-18] MEDS ORDERED: PRINIVIL OR ZES10 MG PO (08:00)
--- NOTE | 2017-01-18 13:29 | NUR ---
Significant Event: Alert and oriented x 3. Up with sit to stand lift. Denies pain. Weakness to lower extremities. O2 at 3L. Continent of bowel and bladder. Reg diet. Pills whole with water. Groin red. Occasional cough. Mucinex given. Cpap at night. Cooperative with cares. Follow up:
--- NOTE | 2017-01-19 03:07 | NUR ---
Significant Event: Patient is alert and oriented, VSS. Up with 2 assist sit to stand lift. Lower extremities effected by his Peripheral Neuropathy. Patient has very little movement to his legs and states some tingling. Continent of bowel and bladder. Meds whole with water. Patient has a productive cough. O2 at 3 liters per NC Keep sats >93%, can titrate. CPAP at night. Groin is red. Follow up:
--- NOTE | 2017-01-19 10:00 | NUR ---
D: Therapeutic Recreation Initial Assessment on the 01/19/17. I: Patient seen for 2 units at 1000 to begin initial evaluation. Pt's dx of heena delcid and R: Patient[place] ramp Living with: alone Spouses name: single # of children: 0 Driving: yes, prior to illness Ambulating: I until 4 months Equipment: N/A Hand Dominance: Right Dynamo Tender strength: [place] weakness Eye sight: glasses Reading ability: reports no problem Hearing: slight [place] Speech: clear Cognition: alert Comprehension: fair Following directions: yes Initiating: yes Eye contact: good Affect: bright COMMUNITY INVOLVEMENT: out to eat, coffee daily, grocery shopping, visit family/friends, camping, car rides, attend sporting events, golf league, was farming prior to illness LEISURE INTERESTS: watch TV, fishing, computer (e-mail, [employer], internet), dog -Winser yard work Patient is referred by medical staff for treatment and evaluation in the following areas: Community Skills, Functional Leisure Skills, Participation, Leisure Education/Behaviors, Family Education, Emotional. Information obtained: Interview, Chart Review, Observation, other. BARRIERS TO LEISURE: Physical, Transportation Patient determined to be: APPROPRIATE FOR THERAPEUTIC RECREATION ASSESSMENT. TREATMENT WILL INCLUDE: Community living skills training Functional leisure development Physical skills development Leisure education Family education Community resources/packet TARGET EQUIPMENT/INFORMATION: Parking Permit WILL NEED Community Resources Energy conservation in community setting Van/Service/Taxi Scrip Adapted Leisure Equipment Stress management/Relaxation techniques Functional car transfers Leisure Education Behaviors: Attitude, Awareness, Participation. Patient functional skills level and potential: Poor, pt demonstrates poor mobility with low endurance. Patient oriented ot TR services on Rehab unit. Pt/family provided input into goals setting and plan of care. 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 P: Target date set with personal goals established. Will continue with POC focusing on pt/family training and education. For additional information please see Nursing Data Base, PT, OT, CM, ST, initial assessments to [facility] and Interdisciplinary Assessments.
--- NOTE | 2017-01-19 14:16 | NUR ---
Significant Event: Patient alert and oriented. Up with sit to stand lift. Wears oxygen at 2-3 liters. Wears CPAP at night. and called regarding consults today. Follow up:
--- NOTE | 2017-01-20 03:28 | NUR ---
Significant Event: A/O X 3. UP WITH 2 ASSIST, SIT-STAND LIFT. HAS PERIPHERAL NEUROPATHY LOWER EXTREMITIES. SOME TINGLING. VOIDS IN URINAL. CONTINENT OF BOWEL AND BLADDER. 02 ON 2L BY RT, SAT ABOVE 90%, CPAP AT NOC WITH 02. OCCASIONAL PRODUCTIVE COUGH. RIGHT GROIN AREA REDNESS AND ROSALIA AREA. BRUISING TO BILATERAL ANTCUBITAL AREAS. WEAKNESS TO LOWER EXTREMITIES. DENIES PAIN WHEN ASKED. Follow up:
--- NOTE | 2017-01-20 14:28 | NUR ---
Significant Event: Alert and oriented x 3. Up with sit to stand. Oxygen at 2L to stay above 93%. Denies pain. Continent of bowel and bladder. Groin red. Weakness to lower extremities. CPAP at night. Productive cough. Cooperative with cares. Follow up:
--- NOTE | 2017-01-21 03:20 | NUR ---
Significant Event: Patient is alert and oriented, VSS. Up 1-2 assist with sit stand lift. Lower extremities very weak but can bear wt. States he has tingling to his legs. Takes meds whole with water. Wears O2 at 1 liter to keep sats >93%. CPAP at night. Was started on KCL and Lasix yesterday. Need an accurate weight and height was weighed on scale in W/C was 135 kg stated height is 5'10". Will be getting IVIG weekly on Fridays. Has a harsh productive cough. Red area to his groin nd rectum. Follow up:
--- NOTE | 2017-01-21 11:49 | NUR ---
D: TR progress note for 01/21/17. I: Pt seen for 2 units at 1102 in group session for education on safety when around pets/animals, group participation, and leisure education and coping strategies. R: Pt seen for functional skills building working on relaxation techniques, stress/pain management, and continued education on coping skills using animals for Animal Assisted Therapy. Pt completed functional communication skills independently which included personal introduction self and shared with group about pet dog, was SBA when handling and maneuvering animals during Animal Assisted Therapy utilizing BUE with goof safety awareness and good bilateral scanning. Education done on safety with ambulation/mobility in homes when around animals, safety with possibility of poor skin integrity and utilizing pets to assist with coping and stress/pain management when opportunity available. P: Will continue to see to address goals and plan of care.
--- NOTE | 2017-01-21 15:57 | NUR ---
Significant Event:PATIENT ALERT AND ORIENTED THIS SHIFT. VSS. TRANSFERS WITH 2 ASSIST, SIT TO STAND. HAS BEEN UP IN WHEELCHAIR MOST OF THE DAY. HAS DENIED PAIN TODAY. OXYGEN ON AT 1-2 L/NC TO KEEP SATS >93. IV STARTED IN LEFT WRIST BY PICC NURSE HE WILL GET CHEMO MED TOMORROW. HAS VOIDED LOT TODAY DUE TO DIURETICS. NO OTHER COMPLAINTS. Follow up:
--- NOTE | 2017-01-22 02:45 | NUR ---
Significant Event: Patient is alert and oriented. VSS. O2 on at 1 liter per NC. CPAP at HS. Was c/o about the new CPAP RT gave him with the humidifier, Is hot nd has too much pressure. RT did adjust it last evening before bedtime. enies pain or discomfort. Up 1-2 assist with sit stand lift. Reports he has tingling to his lower extremities. Legs are weak. IV to his left wrist. Will be getting IVIG infusion today. Follow up:
--- NOTE | 2017-01-22 16:22 | NUR ---
Pt received his dose of Nivolumab after therapies from 1540 to 1640. Pt tolerated the treatment well. Medication was not co-signed in the computer as it did not require one, but Meenakshi Hair RN did double check the medication at bedside with myself. E-mail was sent to Alvaro Ricardo RP to add a co-sign. Pt slept second half of the treatment. IV teagderm was changed as it was becoming non-occlusive.
--- NOTE | 2017-01-22 16:30 | NUR ---
A - PT SCREENED D/T LENGTH OF STAY, NEW ADMIT TO [facility] 01/17. MULTIPLE MYELOMA STAGE IV, CHEMO. GUILLIAN-BARRE. HT: 5'10", WT: 297#, BMI: 42.7, IBW: 75 KG, %IBW: 180% LABS: GLU 107, ALB 2.5, PRE-ALB 22 (01/18) MEDS: OPDIVO, PREDNISONE, XANAX DIET: REGULAR. INTAKE 100% ALL MEALS. EST NEEDS: 3772-5739 KCAL (25-30 KCAL/KG IBW), 75-90 GRAMS PROTEIN (1-1.2 GRAMS/KG IBW), FLUID NEEDS: 1ML/KCAL D - NO NUTRITION DIAGNOSIS AT THIS TIME. M/E - GOAL: PT WILL CONTINUE TO TOLERATE >75% OF MEALS IN 5-7 DAYS.
--- NOTE | 2017-01-22 19:13 | NUR ---
Significant Event:PATIENT ALERT AND ORIENTED THIS SHIFT. VSS. TRANSFERS WITH 2 ASSIST, GAIT BELT AND SIT TO STAND LIFT. IS WORKING ON USING WALKER IN THERAPY BUT PT WOULD LIKE TO SEE HOW HE DOES AFTER HIS IV MED TODAY AND THEN NURSING MAY WORK USE WALKER TOMORROW. HE DID RECEIVE HIS CHECKPOINT INHIBITOR IV TODAY PER ORDER OF DR. ROOT. WILL RECEIVE HIS IVIG TOMORROW PER ORDERS. IS ON ROOM AIR AT THIS TIME HIS SATS HAVE BEEN ABOVE 93 TODAY. HAS DENIED PAIN. NO OTHER COMPLAINTS. Follow up:
--- NOTE | 2017-01-23 04:08 | NUR ---
Significant Event:Transfers with sit stand lift. Cpap at night with 1 L O2. Saline lock to lt lower forearm, good blood return and flushes well. Tingling to feet/hands r/t past chemo side effect. Denies pain. Had received Obdivo IV . Follow up: To receive IVIG today, bottles are in med thudg.
--- NOTE | 2017-01-23 11:40 | NUR ---
Significant Event:A/O X 3. Continues to have chronic numbness and tingling in [place] lower extremities. Mobilizes with a sit to stand lift. Takes meds without problems. NOC CPAP removed by RT and receiving RT tx. Eats in the room ad dae. Voids without problems, Large BM today. No c/o pain. Follow up:therapies
--- NOTE | 2017-01-23 14:49 | NUR ---
D: I have reviewed and agree with charting by RADHA Fierro.
--- NOTE | 2017-01-23 15:23 | NUR ---
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 I: Input from: patient, family, Dr. Joseph, Crista CASANOVAW R: Reason for admission: Michael Mcdonald, Stage IV Melanoma Admission Date to [facility]: 01/17/17 Admission Date to Hospital: see hospital notes. Prior level of functioning: patient was independent with mobility and adl's and prior to illness. Prior living situation: one story house with basement. Financial resources/expectations: patient has [employer] insurance. Insurance approved. Resources used: walk-in shower, highrise toilet Resources available: HHC, outpatient therapy, SNF, [facility], [facility], DME. Family support available: brother, brother's . Understands nature of health condition: yes Recognizes impact of health condition on lifestyle: yes Vocational/Educational: magdaleno Behavior/Emotional needs: cues for safety. monitor for signs and symptoms of depression and anxiety. Legal concerns: none. Discharge goal: home with support. Assessment: Jhoan is a 66 year old man from [place], [place] admitted with Michael Mcdonald. He has good family support. Team conference was held and plan is for patient to d/c in approx. 3-4 weeks. Will follow and assist as needed. Orientation to the program and CM services completed with Jhoan. Initial plan of care and estimated length of stay discussed, disclosure statement reviewed including patient assessment rights. P: Target date and individual goals established. Please see POC for details. For additional information please see Nursing Data Base, PT, OT, TR, Initial assessments to [facility].
--- NOTE | 2017-01-24 04:40 | NUR ---
Significant Event: had IVIG on thursday afternoon/nishant. vss. A/O x3. fine crackes to lower lobes. wears CPAP at hs with 1L o2. up to bathroom with sit to stand lift and 1 assist. had moderate soft bm. no c/o pain. tingling to bilateral feet. Follow up:
--- NOTE | 2017-01-24 12:23 | NUR ---
Significant Event:PATIENT UP 1 ASSIST, SIT TO STAND LIFT, TOLERATES WELL. WEAK LEGS, PERIPHERAL NEUROPATHY. CONTINENT OF BOWEL AND BLADDER. MULTIPLE BM TODAY. DID NOT RECEIVE MORNING DOSE OF MIRALAX. ALERT AND ORIENTED X3. POLITE AND COOPERATIVE. DENIES PAIN. VITALS STABLE ON ROOM AIR, CPAP AT NIGHT. COUGH PRESENT, RECEIVES MUCINEX. IV TO LEFT FOREARM. FEEDS SELF WELL, MEDS WHOLE WITH WATER. CALLS APPROPRIATELY. Follow up:
--- NOTE | 2017-01-25 03:42 | NUR ---
Significant Event : UP TO BATHROOM WITH SIT TO STAND LIFT. TRANSFERS WELL. CONTINUES TO HAVE TINGLING TO BILATERAL LOWER EXTREMITIES. WEARS CPAP AT NIGHT WITH 1L O2. DENIES PAIN. HAD 2 LARGE STOOLS. HAS LOOSE COUGH. EDEMA 2+ TO LOWER EXTREMITIES. TAKES MEDS WHOLE WITH WATER. Follow up:
--- NOTE | 2017-01-25 15:44 | NUR ---
Significant Event: Pt up in room with sit stand lift, did amb from bed to chair. denies pain. VSS. Numbness/tingling to bilat lower ext. CPAP at noc. Pt pleasant and cooperative with cares. Follow up: activity, safety. IVIG on Fridays
--- NOTE | 2017-01-26 05:38 | NUR ---
Alert and oriented. Calls for assistance as needed. Transfers with sit to stand lift. Repostitions self well in bed. Large BM yest. Numbness and tingling to lower ext. Denies pain.
[2017-01-26 06:01] LABS: ALBUMIN 2.6 gm/dL (3.5-5.0); ALK PHOS 42 IU/L (33-138); ALT 30 IU/L (12-78); ANION GAP 9.6 (10.0-19.0); AST 19 IU/L (10-40); BLOOD UREA NITROGEN 11 mg/dL (6-24); CALCIUM 8.5 mg/dL (8.5-10.5); CHLORIDE 107 mMol/L (96-110); CO2 27 mMol/L (22-32); CREATININE 0.6 mg/dL (0.6-1.3); ESTIMATED GFR (MDRD EQUATION) > 60; POTASSIUM 3.6 mMol/L (3.7-5.1); SODIUM 140 mMol/L (135-145); TOTAL BILIRUBIN 0.3 mg/dL (0.0-1.5); TOTAL PROTEIN 7.7 g/dL (6.0-8.4)
--- NOTE | 2017-01-26 11:54 | NUR ---
D: TR progress note for 01/26/17. I: Pt seen for 2 units at 905 for leisure education, coping strategies and cognitive thinking task. R: Pt seen for functional skills building working on coping strategies, leisure education and cognitive visual/observation skills activity for to promote recovery and for coping with increase in free time post discharge. Pt taken outdoors for session, given "visual search" puzzle to identify difference. Pt able to complete independently demonstrating great attention to task, motor skills and scanning. Education continued on use of leisure to promote recovery and for coping strategies. P: Will continue to see to address goals and plan of care.
--- NOTE | 2017-01-26 17:17 | NUR ---
Significant Event:PATIENT ALERT AND ORIENTED THIS SHIFT. VSS. TRANSFERS WITH 1 ASSIST, GAIT BELT AND WALKER OR WITH SIT TO STAND. REPORTS BEING VERY TIRED THIS AFTERNOON FROM THERAPIES. HAS DENIED PAIN ALL SHIFT. SALINE LOCK IN LEFT WRIST INTACT. WEARS CPAP AT NIGHT. NO OTHER COMPLAINTS. Follow up:
--- NOTE | 2017-01-27 04:33 | NUR ---
Significant Event: Patient is alert and oriented. VSS. Up one assist with GB/Walker can ambulate into the bathroom and back to bed. May need 2 assist or sit to stand at times. Has an AFO to his left shoe. Saline lock to his left wrist flushes well no blood return. Denies pain or discomfort. Has weaned off O2 but has CPAP at HS. Follow up:
--- NOTE | 2017-01-27 08:09 | NUR ---
A-NUTRITION F/U CBW: 135 KG (W/C SCALE); ADMIT WT: 133 KG (BED SCALE) LABS REVIEWED DIET RX: REGULAR. PO INTAKE 100% EST NUTR NEEDS: 3037-5380 KCALS AND 75-90 GM PROTEIN D-NO NUTRITION DX I-CONTINUE W/CURRENT DIET RX M/E-WILL ASSIST NEEDED
--- NOTE | 2017-01-27 15:04 | NUR ---
Significant Event: Pt up in room with walker, 1 assist, to BR, julia. well. Pt c/o constipation today, miralax prn dose given, 1 BM thus far. AFO in left shoe. CPAP at noc. No pain t/o day. Pt very pleasant and cooperative with cares. Follow up: activity, IVIG on Fridays. CPAP at noc
--- NOTE | 2017-01-28 03:16 | NUR ---
Patient alert and oriented. Transfers 1A GB/walker.AFO to L) shoe. Saline lock to L) wrist. CPAP at night. Denies pain. VSS. Has some Numbness/ tingling that is not new. Cooperative with cares.
--- NOTE | 2017-01-28 11:40 | NUR ---
D: TR progress note for 01/28/17. I: Pt seen for 2 units at 1100 in group session for education on relaxation techniques, stress/pain management, coping strategies, and leisure education. R: Pt seen for functional skills building working on relaxation techniques, stress/pain management, and continued education on coping strategies in anticipation for discharge back into community. Pt transferred sit > stand from recliner CGA, pivoted with walker to CGA and transferred into CGA with cues for reaching back. Pt actively participated in session, completed functional social communication skills independently which involved personal introduction of self and identification of ways pt dealt with pain/stress prior to hospitalization. Education completed by verbal discussion on the signs and symptoms the physical stress/pain can cause on the body and it's affects along with identification of coping strategies and relaxation techniques. P: Will continue to see to address goals and plan of care.
--- NOTE | 2017-01-28 17:02 | NUR ---
Significant Event: Patient is alert and oriented x3. Follows commands. Denies M[place]. N/T to bilateral legs. PERRLA. Lungs are diminished in the bases. CPAP at HS. 2+ edema from pretibial down. Red buttock- barrier moisture. BSA- requested Miralax. PIV to left wrist- SL. Swallows pills whole. Ambulates with one assist, GB and walker. Pleasant and cooperative with cares. Follow up:
--- NOTE | 2017-01-29 03:47 | NUR ---
Significant Event: a/o x3. up to bathroom with walker and 1 assist. transfers fair. N/T to bilateral lower extremities. edema to lowr extremities. CPAP at hs sl to left wrist, flushes well. denies pain. Follow up:
--- NOTE | 2017-01-29 17:14 | NUR ---
Significant Event:PATIENT ALERT AND ORIENTED THIS SHIFT. VSS. TRANSFERS WITH 1 ASSIST, GAIT BELT AND WALKER. HAS DENIED PAIN THIS SHIFT. TOLERATING THERAPY WITHOUT DIFFICULTY. RESTS IN RECLINER BETWEEN THERAPIES. NO OTHER COMPLAINTS. Follow up:
--- NOTE | 2017-01-30 03:59 | NUR ---
Significant Event:Sat up in recliner watching baseball, denies c/o pain. Reports numbness/tingling to bilat feet but is improving since the IVIG infusions. Saline lock to left wrist area. CPAP applied at hs as at home. 2-3+ edema to feet/ankles, 2+ to lower legs. IS encouraged at bedside. No further stools this shift. Follow up:To receive IVIG today. Monitor stool output. Kevin support stockings.
--- NOTE | 2017-01-30 15:04 | NUR ---
D: Pipe Line Repairer Team Conference Follow up for 01/28/2017 I: Input from patient/family R: Met with: patient, family, Crista Herrera GROUP CHIEF OPERATOR Discussed rehab plan, patient progress, discharge plan and estimated length of stay of d/c in approx. 10-14 days. Patient/Family Preference: In agreement. Anticipated discharge disposition: home with either [facility] or outpatient therapy. Education completed: Education was completed with patient regarding length of stay, progress in therapy and d/c plan. Assessment/Recommendation: Team recommends d/c in approx. 10-14 days. 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 Will d/c in approx. 10-14 days. Will follow.
--- NOTE | 2017-01-30 20:32 | NUR ---
Significant Event:PATIENT ALERT AND ORIENTED THIS SHIFT. VSS. TRANSFERS WITH 1 ASSIST, GAIT BELT AND WALKER. STEADY ON FEET. GETS WORN OUT BY THE END OF THE DAY. HAS DENIED PAIN ALL SHIFT. TOLERATING THERAPIES WELL. RESTS IN RECLINER BETWEEN THERAPIES. IVIG STARTED WITH ONCOMING SHIFT THIS EVENING. PATIENT WAS IN THERAPY AT 1500 WHEN IT WAS DUE. UNABLE TO GET STARTED EARLIER. Follow up:
--- NOTE | 2017-01-31 05:29 | NUR ---
Significant Event:A/O. 1 assist transfer with GB and walker. SL to left wrist area patent; Infused IVIG last evening. VSS on room air. Numbness and tingling to bilateral feet. Denies pain. Kevin socks off at HS and calf pneumatics on. Swelling of bilateral lower extremities noted. CPap AT NIGHT. Call light in reach and bed alarm on. Follow up:
--- NOTE | 2017-01-31 12:41 | NUR ---
Significant Event:Remains alert and orientated. Transfers with 1 assist/gait belt, and walker, steady. Reports therapy tires him when they are done. Saline lock left wrist. Assessment unchanged, continues to c/o numbness and tingling bilateral feet, elevate feet when sitting in recliner. Wears CPAP @ noc. Pt has been plesant and coopertive with plan of care. Follow up: CPAP @ noc, pain control.
--- NOTE | 2017-02-01 02:37 | NUR ---
Significant Event: A&Ox3, VSS on room air, CPAP at night. Denies needs. Voids per urnial. Transfers with SBA, walker/GB to bathroom. Follow up: continue with plan of care.
--- NOTE | 2017-02-01 16:08 | NUR ---
Significant Event:Assessment unchanged. Alert and orientated. Transfers with 1 assist/gait belt and walker. Continues to have numbness in [place]. feet. Elevate feet when in recliner. Denies pain. Pt has been pleasant and cooperative with plan of care. takes meds whole. Follow up:CPAP @ NOC, PAIN CONTROL
--- NOTE | 2017-02-02 02:47 | NUR ---
Pt is alert oriented to person, place and time and pleasant. Pt is a assist with ambulation to the bathroom and back. PT sat in chair and watched TV druing the Evening hours. Has denied c/o pain. Edema to left leg greater than right leg. Pt continues to c/o preipheral neuropathy. Voices his discouragement with being in the hospital, stated that he has been in 4 different hospitals in the last 4 months. Has denied need for pain medicine this shift.
[2017-02-02 05:21] LABS: ALBUMIN 2.4 gm/dL (3.5-5.0); ALK PHOS 45 IU/L (33-138); ALT 27 IU/L (12-78); BLOOD UREA NITROGEN 11 mg/dL (6-24); CALCIUM 8.1 mg/dL (8.5-10.5); CHLORIDE 107 mMol/L (96-110); CO2 27 mMol/L (22-32); CREATININE 0.7 mg/dL (0.6-1.3); TOTAL BILIRUBIN 0.3 mg/dL (0.0-1.5); TOTAL PROTEIN 7.3 g/dL (6.0-8.4)
[2017-02-02 05:24] LABS: AST 24 IU/L (10-40); SODIUM 140 mMol/L (135-145)
--- NOTE | 2017-02-02 15:50 | NUR ---
Significant Event:PATIENT ALERT AND ORIENTED THIS SHIFT. VSS. TRANSFERS WITH 1 ASSIST, GAIT BELT AND WALKER. DENIES PAIN ALL SHIFT. SALINE LOCK IN LEFT WRIST INTACT. NO BLOOD RETURN. TOLERATING THERAPIES WITHOUT DIFFICULTY. NO OTHER COMPLAINTS. Follow up:
--- NOTE | 2017-02-03 05:46 | NUR ---
Alert and oriented. Calls for assistance as needed. Up with one assist and walker. Denies need for pain meds. CPAP at night. Slept well
--- NOTE | 2017-02-03 15:04 | NUR ---
D: OT home visit completed on 02/03/17. I: Patient seen 1x, from 12:05 to 14:30, for home visit assessment. Patient, Occupational therapist, FITTER ARMAMENT, OT student and Pt's family/friends were present. R: Patient completed the following tasks with the amount of assist listed. Also listed below are recommendations to increase safety and independence. BEDROOM: Functional mobility - SBA with 4WW Bed transfer - not completed as Pt's bedroom is currently being remodeled and Pt's has new sleep number bed which has not yet been assembled. Closet/Mcdougal Usage - Closet door width: 22" Doorway access - 29" doorway, CGA/SBA with 4WW Phone access - Pt has cell phone available. Bedside light access - Provided recommendation for bedside lights/night lights; not in place d/t current remodel. RECOMMENDATIONS: Provided recommendation for bedside table with bedside light access. BATHROOM: Functional mobility - CGA/SBA with FWW Toilet transfer - CGA/SBA using FWW. Pt has sink counter present on L)side of toilet to use for sit<>stand transfers. Pt may benefit from installation of toilet safety frame. Toilet height: 18" Shower transfer - walk-in shower with door, 23.5" width. CGA to side-step to enter walk-in shower and perform sit<>stand transfer from shower chair. Adjusted the height of Pt's shower chair to promote ease of transfer. Doorway access - 23" width (master bedroom access); 22.5" (hallway access). Could remove door between master bedroom and bathroom to promote ease of mobility. Pt able to enter bathroom through master bedroom by side-stepping using FWW with CGA for safety. Did not assess ability to enter bathroom through hallway d/t remodel/construction items currently blocking doorway. 4WW does not fit through bathroom doorway. RECOMMENDATIONS: Removal of loose throw rug in the bathroom. Rearranged location of trash can to ease shower transfer. Installation of grab bar vertically outside of walk-in shower and one grab bar horizontally inside walk-in shower. KITCHEN: Functional mobility - CGA/SBA with 4WW Chair transfer - N/A, Pt has meals seated on couch in living room. Cupboard access - Unable to assess cupboard, refrigerator, sink, stove use d/t extra furniture currently placed in kitchen during remodeling project. Kitchen has open floor plan and will allow for access from standing position at 4WW. RECOMMENDATIONS: Provided instruction on energy conservation recommendations with use of 4WW for item transport. LIVING ROOM: Functional mobility - CGA/SBA with 4WW Chair transfer - CGA with 4WW, 2-armrest chair. Provided recommendation to place chair against the wall to promote safety. Couch transfer - CGA with 4WW, adapted surface with cushion to promote ease d/t low surface (17" height couch) TV operation - independent from seated position RECOMMENDATIONS: Use of cushions to adapt chair/couch height HOME ENTRY: Functional mobility - CGA with 4WW to ascend/descend approx. 20ft ramp. Door access - CGA with 4WW EMERGENCY SITUATIONS: Phone Use - Pt has cell phone available. Exit Plan - Pt able to access front door without assist. Safety and Judgement - Pt demonstrates intact safety awareness for performance of functional transfers/mobility in home environment. Recommend installation of smoke detectors to promote safety in case of emergency. Lifeline - Pt's family inquired about Lifeline. Will notify home care physical therapist of request for information packet on Lifeline. ADDITIONAL INFORMATION: Washer/Dryer use - Located in front entry, open floor plan. Endurance Level - Pt demonstrates one instance of SOB with seated rest break provided. Overall, Pt tolerates all functional activity/transfers well. GENERAL RECOMMENDATIONS: Provided instruction on general home safety and energy conservation recommendations. Provided recommendation on installation of grab bars in walk-in shower. Pt will need a FWW to access his bathroom via side-stepping d/t narrow doorway. Recommend family/friend assist with I/ADLs PRN. Pt's family/friends present during home safety evaluation and plan to have the remodel to Pt's bedroom completed as well as the grab bars installed into the bathroom prior to Pt's discharge home. P: Patient does agree to complete the above listed recommendations and home modifications. Miki Rivas, OTR/L (02/03/17)
--- NOTE | 2017-02-03 15:10 | NUR ---
D: TR progress note for 02/03/17. I: Pt seen for 10 units at 1203 for community integration skills building, family training and home visit. R: Pt seen for functional skills building working on transfers, mobility, safety, community skills and family education to increase independence in anticipation for discharge home. Pt taken home by Therapies (TR/OT) with brother, [id number] and campbell present for session. Pt preformed transfers into vehicle at [facility] and home CGA first transfers and SBA for return trip using walker and cues for hand placement. Pt was SBA for BLE management with seat surface adapted using cushion and trash bag to ease task. Pt at home was CGA to ascend/descend 20 feet ramp using 4WW and able to exit/enter home CGA with cues on adapting door handle to increase ease of opening door. Pt ambulated house hold distances SBA > CGA with walker which included sidestepping to enter/exit bathroom with no LOB but noted SOB x1. Pt completed transfers in/out of recliner couch x2 (x1 CGA and x1 SBA) with seat surface adapted using cushion. Pt also completed transfers on/off shower chair, raised toilet and low living room chair all CGA due to safety concerns with low surfaces. Discussed with pt/family safety concerns with accessible pathways, adapting surfaces and removal of all throw rugs at this time to improve home environment. Discussed use of basement with recommendations from OT/TR pt not attempt this at this time. Education and review done during car travel ride to home to not operating motorized vehicle until Physician's approval, energy conservation, safety when traveling long distances in vehicle and reviewed community safety concerns. Pt had no questions or concerns at this time, will involve CM on getting WW and lifeline. For more detailed information please see OT home visit note on the 02/03/17. P: Will continue to see to address goals and plan of care.
--- NOTE | 2017-02-03 16:46 | NUR ---
Significant Event:PATIENT ALERT AND ORIENTED THIS SHIFT. VSS. TRANSFERS WITH 1 ASSIST, GAIT BELT AND WALKER. HAS DENIED PAIN THIS SHIFT. SALINE LOCK IN LEFT WRIST REMAINS INTACT. WENT ON HOME VISIT TODAY AND TOLERATED WELL. NO OTHER COMPLAINTS. Follow up:
--- NOTE | 2017-02-04 02:43 | NUR ---
Alert and oriented. Up with one assist and walker. Went on home visit yest to [facility]. Plans to discharge next week. Denies need for prn pain meds. Sister her to visit last 2 evenings.
[2017-02-04 05:21] LABS: BASOPHIL % 0.5 %; EOSINOPHIL # 0.3 K/uL (0.0-0.5); EOSINOPHIL % 2.8 %; HEMATOCRIT 41.8 % (37.0-53.0); HEMOGLOBIN 13.8 g/dL (11.0-16.0); IMMATURE GRANULOCYTE # 0.1 K/uL (0.0-0.3); IMMATURE GRANULOCYTE % 0.8 %; LYMPHOCYTE # 2.1 K/uL (0.8-4.0); LYMPHOCYTE % 23.3 %; MCH 30.3 pg (27.0-34.0); MCV 91.9 fl (83.0-98.0); MONOCYTE # 0.9 K/uL (0.0-1.0); MONOCYTE % 10.4 %; MPV 9.9 fl (9.4-12.4); NEUTROPHIL # (ANC) 5.5 K/uL (1.4-9.0); NEUTROPHIL % 62.2 %; NRBC % 0 /100WBC (0-0.00); PLATELET COUNT 203 K/uL (150-450); RBC 4.55 M/uL (3.50-5.50); RDW-CV 14.5 % (11.9-14.6); WBC 8.9 K/uL (4.0-11.0)
[2017-02-04 05:34] LABS: ALBUMIN 2.7 gm/dL (3.5-5.0); ALK PHOS 43 IU/L (33-138); ALT 28 IU/L (12-78); ANION GAP 9.6 (10.0-19.0); AST 16 IU/L (10-40); BLOOD UREA NITROGEN 11 mg/dL (6-24); CALCIUM 8.4 mg/dL (8.5-10.5); CHLORIDE 107 mMol/L (96-110); CO2 27 mMol/L (22-32); CREATININE 0.7 mg/dL (0.6-1.3); POTASSIUM 3.6 mMol/L (3.7-5.1); SODIUM 140 mMol/L (135-145); TOTAL BILIRUBIN 0.3 mg/dL (0.0-1.5); TOTAL PROTEIN 7.3 g/dL (6.0-8.4)
--- NOTE | 2017-02-04 11:37 | NUR ---
A-NUTRITION F/U WENT ON HOME VISIT; PLANNING ON D/C NEXT WEEK CBW (W/C SCALE): 135.5 KG; WT STABLE MEDS: OPDIVO. LABS REVIEWED DIET RX: REGULAR. PO INTAKE BEEN 100% EST NUTR NEEDS: 8708-0116 KCALS AND 75-90 GM PROTEIN D-NOT AT NUTRITION RISK; NO NUTRITION DX IDENTIFIED I-CONTINUE W/CURRENT DIET RX M/E-ASSIST NEEDED
--- NOTE | 2017-02-04 11:51 | NUR ---
D: TR progress note for 02/04/17. I: Pt was to be seen for 2 units at 1100. R: Pt not seen due to conflict with visitors P: Will continue to see to address goals and plan of care.
--- NOTE | 2017-02-04 12:53 | NUR ---
Significant Event:Pt awake, up in chair, alert and orientated this am. Expresses needs well. Transfers with 1 assist, walker/GB. Denies need of any pain med. Saline lock left wrist patent, intact. CPAP @ noc. Pt has been pleasant and cooperative with plan of care. Follow up:CPAP @ noc,
--- NOTE | 2017-02-05 02:50 | NUR ---
Significant Event: Patient is alert and oriented, VSS. Up one assist with GB/Walker. Saline lock to left wrist with flushes easily,no blood return. Denies pain or discomfort. CPAP at night. Chemo scheduled for 1330 today. Follow up: Chemo
--- NOTE | 2017-02-05 13:59 | NUR ---
Existing PIV used for today's opdivo infusion despite being several days old d/t patient being a very hard stick and has had difficulty in the past. PIV flushes easily, good blood return present and pt denies pain/stinging with flush. Opdivio infusion completed without difficulty.
--- NOTE | 2017-02-05 15:27 | NUR ---
Significant Event: Pt up in room and hendricks with walkerTAMAR tol. well. Pt denied pain t/o day. REported numbness and tingling to hands and lower ext. is getting better. Mostly just in toes now. Pt went to cancer center for chemo at 1320. Pt pleasant and cooperative with cares. Follow up: activity, safety, IVIG tomorrow.
--- NOTE | 2017-02-06 02:54 | NUR ---
Significant Event: Patient alert and oriented, VSS. Up Mod I in room. Has some numbness to all extremities has improved since admission. Saline lock to his left wrist flushes no blood return. Received Chemo yesterday is on hazardous med precautions. Will receive IVIG today. IVIG Infusion prococol on computer in room to follow. Patient has plans for port placement, is on [facility]. Denies pain or discomfort. Edema to lower extremities wears bebeto hose. Cooperative with cares. Follow up:
--- NOTE | 2017-02-06 13:54 | NUR ---
Significant Event: Alert/oriented x 3. Vitals stable. Room air. Up ad dae in room. IV to left hand. Tylenol given as scheduled. Follow up:
--- NOTE | 2017-02-06 13:58 | NUR ---
D: TR progress note for 02/06/17. I: Pt seen for 2 units at 1036 for community integration skills building, functional transfers, family training, and safety awareness. R: Pt seen for functional skills building working on family training, mobility, safety, functional transfers and community skills in anticipation for discharge back into community with family. Pt's brother and [id number] present for session, transferred into their SUV. Pt transferred sit > stand from WC SBA, ambulated with walker to/from vehicle 6 feet SBA and transferred in/out of vehicle SBA with good safety awareness. Pt was SBA for BLE management and positioning of self. Family training done on how to assemble/dissemble WC, use of foot plates and lifting precautions when placing WC in SUV. Weekend planning done with plans for community outing with family. P: Will continue to see to address goals and plan of care.
--- NOTE | 2017-02-07 05:36 | NUR ---
Significant Event:IVIG infusion completed last evening, tolerated well without experiencing any side effects, vitals stable. Saline lock to left hand, good blood return. Up ad dae in room, does well. 2+ edema to lower legs/feet. Voids x 3, po intake 640 ml, IV intake 870 with last bm on 02/06. Had received chemo on the . Follow up:[facility] to address port placement--has not seen pt yet. Requests Thursday noon outing--needs order and paper consent signed yet.
--- NOTE | 2017-02-07 15:49 | NUR ---
Significant Event: Pt up in room ad dae. Steady, julia. well. Pt went on outing today with family. numbness/tingling improving to hands and feet. CPAP at noc. Pt pleasant and cooperative with cars. Follow up: Dr Zepeda for port placement?, pt has not seen general surgeon yet. Dr Waters in to see pt, plan for overnight trend ox 24-48hr prior to discharge. Pt will need sleep study after discharge.
--- NOTE | 2017-02-08 04:41 | NUR ---
Significant Event:Saline lock to left hand. Lungs diminished, wears cpap at night. Family visited last evening and watched baseball on tv. Edema to lower legs 2+, lower feet/ankles 3+ as had feet down when in recliner. Denies pain. Hs snack taken with meds. Up ad dae in room, has bed alarm on at night. Follow up:Trend Ox study 24-48 hrs prior to discharge. [facility] to see pt regarding port placement--no Dr here this past evening. Discharge possible Tu or Wed per pt's statement. Continue to monitor water on floor near air conditioning unit/window as has had issues.
--- NOTE | 2017-02-08 16:28 | NUR ---
Significant Event: Pt up in room ad dae, steady, julia. well. No c/o pain. CPAP at night. Visitors off/on t/o day. Generalized lower ext. edema. Pt very pleasant and cooperative with cares. SL to left hand. Pt given information on infusaport. Follow up: Will need to notifiy general surgery r/t consult that was ordered on 02/05. Have not seen them yet. Possible port placement and discharge. Pt hoping for discharge or Thu. Pt will also need overnight trend ox 24-48 hr prior to discahrge.
--- NOTE | 2017-02-09 04:11 | NUR ---
Significant Event:Up ad dae with walker in room, does well when up with a bit more time. Numbness/tingling to lower legs/feet has subsided and pt feels much stronger in legs with less sensation of n/t since admission. 2+ edema to bilat legs; 3+ to bilat feet/ankles. Lg formed bm last evening, voids x 1, adequate oral intake. CPAP at bedtime. Saline lock to left hand. Needs port placement. Follow up:Call [facility] for port placement--unsure if this procedure is to be done while still on [facility] or as an outpt--[facility] was txted info request on but no response back. Needs trend ox study by RT on Thursday night prior to discharge on .
[2017-02-09 05:42] LABS: BASOPHIL # 0.1 K/uL (0.0-0.2); BASOPHIL % 0.6 %; EOSINOPHIL # 0.3 K/uL (0.0-0.5); EOSINOPHIL % 3.2 %; HEMATOCRIT 42.1 % (37.0-53.0); HEMOGLOBIN 13.6 g/dL (11.0-16.0); IMMATURE GRANULOCYTE # 0.1 K/uL (0.0-0.3); LYMPHOCYTE # 2.3 K/uL (0.8-4.0); LYMPHOCYTE % 25.1 %; MCH 29.8 pg (27.0-34.0); MCHC 32.3 gm/dL (32.0-36.5); MCV 92.3 fl (83.0-98.0); MONOCYTE % 11.6 %; MPV 10.1 fl (9.4-12.4); NEUTROPHIL # (ANC) 5.3 K/uL (1.4-9.0); NEUTROPHIL % 58.5 %; NRBC % 0 /100WBC (0-0.00); PLATELET COUNT 209 K/uL (150-450); RBC 4.56 M/uL (3.50-5.50); RDW-CV 14.5 % (11.9-14.6)
[2017-02-09 06:02] LABS: ALBUMIN 2.6 gm/dL (3.5-5.0); ALK PHOS 44 IU/L (33-138); ALT 24 IU/L (12-78); ANION GAP 11.6 (10.0-19.0); AST 18 IU/L (10-40); BLOOD UREA NITROGEN 11 mg/dL (6-24); CALCIUM 8.3 mg/dL (8.5-10.5); CHLORIDE 107 mMol/L (96-110); CO2 26 mMol/L (22-32); CREATININE 0.7 mg/dL (0.6-1.3); POTASSIUM 3.6 mMol/L (3.7-5.1); SODIUM 141 mMol/L (135-145); TOTAL PROTEIN 7.2 g/dL (6.0-8.4)
[2017-02-09 06:03] LABS: TOTAL BILIRUBIN 0.2 mg/dL (0.0-1.5)
--- NOTE | 2017-02-09 10:58 | NUR ---
D: Dieing Out Machine Operator Team Conference Follow up for 02/04/2017 I: Input from patient/family R: Met with: patient, family, Crista Herrera GRAPHIC ARTIST Discussed rehab plan, patient progress, discharge plan and estimated length of stay of d/c planned on 02/10/2017. Patient/Family Preference: patient is in agreement. Anticipated discharge disposition: home with outpatient therapy. Education completed: Education was completed with patient regarding length of stay, progress in therapy and d/c plan. Assessment/Recommendation: Team recommends d/c next Thursday. 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 He also has stage IV melanoma. Will work to set up patient's IVIG treatments, outpatient sleep study and a walker. Will follow and assist as needed.
--- NOTE | 2017-02-09 12:40 | NUR ---
Significant Event: PATIENT UP AD TONIO IN ROOM WITH WALKER. ALERT AND ORIENTED X3. DENIES PAIN. CONTINENT OF BOWEL AND BLADDER. IV TO LEFT HAND. CPAP AT NIGHT. TREND OX TONIGHT. WILL DC ABOUT 0500 IN THE MORNING TOMORROW TO GO TO [facility] [place] FOR PORT PLACEMENT. VITALS STABLE ON ROOM AIR DURING THE DAY. NUMBNESS/TINGLING TO LOWER LEGS, EDEMA PRESENT. PATIENT FEEDS SELF WELL, MEDS WHOLE WITH WATER. Follow up:
[2017-02-09] MEDS ORDERED: OCTAGAM 10% VI200 ML IV (13:30)
[2017-02-09] MEDS ORDERED: TYLENOL325 MG PO (13:31)
[2017-02-09] MEDS ORDERED: NORVASC5 MG PO (13:32)
[2017-02-09] MEDS ORDERED: FLEXERIL10 MG PO (13:32)
[2017-02-09] MEDS ORDERED: PEPCID20 MG PO (13:33)
[2017-02-09] MEDS ORDERED: MUCINEX600 MG PO (13:33)
[2017-02-09] MEDS ORDERED: TRANDATE OR NO100 MG PO (13:35)
[2017-02-09] MEDS ORDERED: DELTASONE20 MG PO (13:35)
[2017-02-09] MEDS ORDERED: PULMICORT0.5 MG/21 INH (13:36)
[2017-02-09] MEDS ORDERED: MIRALAX17 GM PO (13:37)
[2017-02-09] MEDS ORDERED: DUONEB (13:37)
--- NOTE | 2017-02-09 23:38 | NUR ---
Significant Event: Patient alert and oriented x3. Up independent in room. Vitals stable on room air. Trend ox currently in progress, sats around 90%. Left forearm peripheral IV discontinued. Denies any pain. Had a large bowel movement tonight. Will be NPO at midnight. Belongings packed. Dismissal packet done. Leaving for [facility] [place] at 0530. Follow up:
--- NOTE | 2017-02-10 03:56 | NUR ---
*RESUMED CARE FROM [id number]* Patient rested well. Will discharge at 0530.
--- NOTE | 2017-02-13 13:03 | NUR ---
D: Developer Support Engineer Discharge Note for 02/10/17 I: Input from Patient/Family R: Patient to discharge On: 02/10/17 With: brother Disposition: home with outpatient therapy. Resource Discussed: Discussed all options. Patient prefers outpatient therapy. Therapy Recommendation: see therapy notes. Equipment Recommendations: ordered 4 WW per patient's choice from [facility]. Financial Resources Used: Patient has [employer] insurance. Other referrals: Referral for IVIG infusion, referral for IV Optiva injection, referral for sleep study. Patient/Family education completed: prior to d/c. Patient/Family preference: in agreement. Plan of Care and Goal summary: met all CM goals. P: Complete follow up within one week: call patient to see how he is doing next week.
== END 2017-02-10 06:10 | disposition disaster alternative care site (69) | DRG 91 ==
LOC: GIRP 13:40
PROVIDERS: Internal Medicine Hematology & Oncology; ADMIT Physical Medicine & Rehabilitation
DX: R26.81 Unsteadiness on feet (principal); J96.21 Acute and chronic respiratory failure with hypoxia; C90.00 Multiple myeloma not having achieved remission; Z68.41 Body mass index [BMI] 40.0-44.9, adult; I50.32 Chronic diastolic (congestive) heart failure; G65.0 Sequelae of Guillain-Barre syndrome; J44.9 Chronic obstructive pulmonary disease, unspecified; G47.34 Idiopathic sleep related nonobstructive alveolar hypoventilation; G47.33 Obstructive sleep apnea (adult) (pediatric); F41.9 Anxiety disorder, unspecified; E66.9 Obesity, unspecified; G62.89 Other specified polyneuropathies; I25.10 Atherosclerotic heart disease of native coronary artery without angina pectoris; M47.9 Spondylosis, unspecified; K76.0 Fatty (change of) liver, not elsewhere classified; I11.0 Hypertensive heart disease with heart failure
CPT/HCPCS: J1568; J1650; J7030; J7050; J7512; J9299

== ENCOUNTER → 2017-02-10 | Outpatient (CLI) | payer OTHER ==
[~2017-02-10] MED LIST: DELTASONE20 MG PO; DUONEB; FLEXERIL10 MG PO; MIRALAX17 GM PO; MUCINEX600 MG PO; NORVASC5 MG PO; OCTAGAM 10% VI200 ML IV; PEPCID20 MG PO; PRINIVIL OR ZES10 MG PO; PULMICORT0.5 MG/21 INH; TRANDATE OR NO100 MG PO; TYLENOL325 MG PO
--- NOTE | ~2017-02-10 | PUL ---
PATIENT'S NAME: YAMILETH SLATER [facility] AGE: 66 Y [address] ROOM: [place] [address] LOCATION: [facility] ADMIT DATE: 02/10/2017 Pulmonary DISCHARGE DATE: FAMILY PHYSICIAN: Danial Fernandez MD ATTENDING PHYSICIAN: Danial Fernandez NAME OF PROCEDURE: Sleep Study PROCEDURE DATE: 02/10/17 TECH: MAURICE Burnette TEST #: [id number] TECHNICAL PARAMETERS: The patient was studied using International 10/20 measuring system. While the patient was studied, there was continuous monitoring of EEG (8 leads), EOG (2 leads), EKG (3 leads), submental EMG (3 leads), tibial (4 leads), respiratory inductive plethysmography (RIP) for thoracic and abdominal effort, oral and nasal airflow with a thermocouple and pressure transducer, and oximetry. The critical power technician also performed visual and auditory observations noting things like body position, patient's status, breath sounds, artifact, snoring level and patient comments. Continuous sound was monitored using a 2-way speaker system and video monitoring was performed using an infrared camera. Review of the entire study was performed epoch by epoch utilizing a single epoch and multiple epoch capability sleep system. MEDICAL HISTORY: Patient is a 66-year-old overweight man with daytime sleepiness and snoring. SLEEP STAGE SUMMARY: The patient was studied for 489 minutes of which he slept 385 minutes. He fell asleep in 6 minutes and slept for 79% of the night. Sleep architecture revealed a decline in slow wave and REM sleep. RESPIRATORY SUMMARY: Oxygen saturations ranged from 66%-88%. Prior to initiating CPAP there were 187 hypopneas and 9 apneas. CPAP was initiated and titrated. Best level of control occurred with CPAP at 14 cm achieving an apnea/hypopnea index of 11.8 events per hour. There was insufficient time to titrate further. EKG SUMMARY: No significant dysrhythmias were noted. LIMB MOVEMENT SUMMARY: Occasional periodic limb movements were noted. These do not appear to be clinically relevant. SUMMARY: Severe obstructive sleep apnea. Incomplete titration of CPAP. PATIENT'S NAME: YAMILETH SLATER [facility] AGE: 66 Y [address] ROOM: [place] [address] LOCATION: [facility] ADMIT DATE: 02/10/2017 Pulmonary DISCHARGE DATE: FAMILY PHYSICIAN: Danial Fernandez MD ATTENDING PHYSICIAN: Danial Fernandez PLAN: Would consider either a repeat study for full CPAP titration or initiation of auto titrating CPAP. The patient will receive results from the ordering provider. GONZALO MORSE MD [facility]/ /[id number] dtt: 02/13/17 1303 , Gonzalo Morse. dtd: 02/13/17 1008
== END | disposition disaster alternative care site (69) ==
LOC: GSLP 20:32
DX: G47.9 Sleep disorder, unspecified (principal); G47.33 Obstructive sleep apnea (adult) (pediatric); J44.9 Chronic obstructive pulmonary disease, unspecified; I10 Essential (primary) hypertension